=== PATIENT | female | born 1945 | race Caucasian/White ===

== ENCOUNTER 2018-08-30 05:33 | Inpatient (IN) ==
[2018-08-30] MEDS ORDERED: Sodium Chlor 0.9% Inj 500 ML IV.CONT ONE ×2 (07:00→07:45)
[2018-08-30] MEDS ORDERED: Metoprolol Tartrate 25 MG Tablet PO ONE ×2 (07:00→07:45)
[2018-08-30] MEDS ORDERED: Chlorhexidine Gluconate 2% 1 Pack (2 Cloths) TOPICAL ONE ×2 (07:00→07:45)
[2018-08-30] MEDS ORDERED: ceFAZolin 2 GM Premix Inj 2 GM/50 ML PIGGYBACK IV.SIG SCH ×2 (07:00→15:00)
[2018-08-30] MEDS ORDERED: HYDROmorphone PF Inj 1 MG/ML Ampul IV.PUSH PRN (07:03)
[2018-08-30] MEDS ORDERED: Post-op Orders (for Pharmacy) OTHER STA (07:03)
[2018-08-30] MEDS ORDERED: Dexamethasone Inj 20 MG/5 ML Vial ONE (07:12)
[2018-08-30] MEDS ORDERED: Sodium Chlor 0.9% Inj 250 ML ONE ×2 (07:12→07:20)
[2018-08-30] MEDS ORDERED: ceFAZolin 2 GM Premix Inj 2 GM/50 ML PIGGYBACK IV.SIG ONE (07:12)
[2018-08-30] MEDS ORDERED: Chlorhexidine 4% Topical 120 APPLIC/120 ML Bottle TOPICAL SCH (07:15)
[2018-08-30 07:28] LABS: INR 1.1 Ratio; Prothrombin Time 11.1 sec (9.8-11.6)
[2018-08-30] MEDS ORDERED: SODIUM CHLOR 0.9% IV.SIG SCH (07:30)
[2018-08-30] MEDS ORDERED: Tranexamic Acid Inj 3,000 MG in Sodium Chlor 0.9% Inj 100 ML P-ARTICULR SCH (07:30)
[2018-08-30] MEDS ORDERED: TRANEXAMIC ACID IV.SIG SCH (07:30)
[2018-08-30] MEDS ORDERED: Vancomycin Inj 1,000 MG in Sodium Chlor 0.9% Inj 250 ML IV.SIG SCH ×2 (07:45→08:00)
[2018-08-30] MEDS ORDERED: Sodium Chlor 0.9% Inj 73.07 ML, Ropivacaine 0.5% PF Inj 24.63 ML, Ketorolac Inj 30 MG, ... P-ARTICULR SCH ×5 (08:00)
[2018-08-30] MEDS ORDERED: Neostigmine Inj 5 MG/5 ML Syringe IV.PUSH ONE (08:43)
[2018-08-30] MEDS ORDERED: Lidocaine PF 1% Inj 5 ML Syringe OTHER ONE (08:43)
[2018-08-30] MEDS ORDERED: Phenylephrine/NS 1000 MCG/10ML Syringe IV.PUSH ONE (08:43)
[2018-08-30] MEDS ORDERED: Glycopyrrolate Inj 1 MG/5 ML Syringe IV.PUSH ONE (08:43)
[2018-08-30] MEDS ORDERED: *Ondansetron Inj 4 MG/2 ML Vial PERIprocedural Use ONLY ONE (10:47)
[2018-08-30] MEDS ORDERED: *Meperidine Inj 25 MG/ML Vial PERIprocedural Use ONLY ONE (10:57)
[2018-08-30] MEDS ORDERED: fentaNYL Citrate Inj 100 MCG/2 ML Ampul ONE (11:00)
--- NOTE | 2018-08-30 11:14 | XR ---
EXAM DATE: 08/30/2018 7:02 AM EDT AGE/SEX: 73 years / Female INDICATIONS: Post op right knee. CLINICAL DATA: This is the patient's initial encounter. Patient reports that signs and symptoms have been present for 1 day and indicates a pain score of Nonresponsive. MEDICAL/SURGICAL HISTORY: None. None. COMPARISON: . FINDINGS: Right knee arthroplasty in place. Unspecified components are in anatomic alignment and well positione d. No significant acute bony fracture. Immediate postsurgical soft tissue changes. CONCLUSION: 1. Right knee arthroplasty in anatomic alignment without acute fracture. Electronically signed by: Jamshid Marie MD 08/30/2018 11:12 AM EDT
--- NOTE | 2018-08-30 11:17 | MP ---
cc: Víctor Julian MD DATE OF OPERATION: 08/30/2018 PREOPERATIVE DIAGNOSIS: Right knee osteoarthritis. POSTOPERATIVE DIAGNOSIS: Right knee osteoarthritis. PROCEDURE PERFORMED: Right total knee arthroplasty. SURGEON: Víctor Julian MD DRY CLEANING SUPERVISOR: ANGELICA French ANESTHESIA: General with a femoral nerve block. ESTIMATED BLOOD LOSS: 100 mL TOURNIQUET TIME: 24 minutes at 250 mmHg. COMPLICATIONS: None. IMPLANTS USED: DePuy Attune size 4 posterior stabilized femoral component, size 5 rotating platform tibial baseplate, size 7 mm polyethylene tibial insert, size 35 patella. JUSTIFICATION: This patient is a 73-year-old female with a history of severe osteoarthritis involving the right knee joint. She has severe disabling pain with standing, walking, ambulation, weightbearing activities, and even severe pain at rest. She has failed greater than 3 months of nonoperative conservative treatment to include medication therapy, injections, ambulatory assisted aids, a home exercise program, activity modification, and weight loss. X-rays of the right knee reveal severe osteoarthritis with joint space narrowing, subchondral sclerosis, subchondral cyst, osteophyte formation with deformity and subluxation. The patient was counseled as to the risks, benefits, and alternatives to a total knee arthroplasty. The risks were discussed, which include, but are not limited to anesthesia, bleeding, infection, damage to nerves and blood vessels, pain, stiffness, failure of hardware, blood clots, pulmonary embolism, and even . The patient's pain is severe. She favors the benefits over the risks and wishes to proceed with surgery. PROCEDURE IN DETAIL: Written consent was obtained. The patient was identified by name, taken to the operating room, and placed supine on the operating room table. General anesthesia was administered as well as 2 grams of IV Ancef and 1 gram of IV vancomycin. The right lower extremity was prepped and draped using isopropyl alcohol, Hibiclens solution, and ChloraPrep solution. After a timeout was performed, an Esmarch bandage was used to exsanguinate the right lower extremity and the was tourniquet inflated to 250 mmHg. A longitudinal incision was made over the anterior aspect of the right knee. A medial parapatellar arthrotomy was performed. The patella was everted. A patellar resection guide was used to resect 7 mm of the patella. The size 35 mm guide was placed. Three drills were placed and the 35 mm trial fit well. Attention was turned to the femur, where an intramedullary guide was placed. The distal femoral guide was set to remove 11 mm of distal femur, 5 degrees off the anatomic valgus axis alignment. An oscillating saw was used to perform the distal femoral cut. Attention was turned to the tibia, where an extramedullary tibial guide was set to remove 5 mm off the lowest portion of the medial tibial plateau. A tibial guide was then placed and a tibial cut was performed. A 5 mm spacer block showed full extension. Attention was turned back to the femur, where an AP sizing block measured a size 4. The anterior reference 3-degree external rotation guide was used to pin a size [address] The anterior, posterior and chamfer cuts were performed. The size 4 PCL box was pinned in place and the PCL was boxed out with an oscillating saw. The medial and lateral meniscus remnants were removed, as well as bone and soft tissue debrided from the posterior portion of the knee. A size 5 tibial base plate was pinned in place, the tibia was drilled with a punch. Trial components were evaluated and the final components cemented in place. With the current components, the leg could achieve full extension to 0 degrees and flexion to 140 with no evidence of tibial liftoff. Varus and valgus balance appeared appropriate and symmetric. There was some lateral patellar tracking and a lateral release was performed, which allowed for central patellar tracking. With the tourniquet deflated, Bovie cautery was used for hemostasis. The surgical wound was thoroughly irrigated with sterile saline, pulse lavaged with antibiotic impregnated solution. The arthrotomy incision was closed with #1 Vicryl suture, the subcutaneous layer with 2-0 Vicryl suture, and the skin was closed with Dermabond. A sterile dressing was applied. The patient tolerated the procedure well with no intraoperative complications noted. Max Aceves, Physician Director [employer] was present for the entire procedure to include the patient positioning and the procedure itself. The medical necessity of a physician food and nutrition services assistant was indicated in this case due to the complexity of the procedure to assist with appropriate manipulation of the leg, muscle retraction as well as tendon, bone, and neurovascular structures. He assisted with preparation of bone and also implantation of the prosthetic replacement. MD TANIA Kidd/didier , 10:16 AM , 10:25 AM
[2018-08-30] MEDS: Senna/Docusate Sodium 8.6/50 MG Tablet PO SCH ×2 (13:13→22:19)
[2018-08-30] MEDS: Multivitamin/Minerals Therapeutic Tablet PO SCH ×2 (13:13→22:18)
[2018-08-30] MEDS: ceFAZolin 2 GM/NS 100 ML IV; Q8H IV.SIG SCH ×4 (15:19→22:13)
--- NOTE | 2018-08-30 16:04 | P.CON ---
History of Present Illness Requesting Physician: Víctor Julian Reason for Consult: postop mgt Primary Care Provider: No Primary Care Physician Chief Complaint: Right knee pain History of Present Illness: This is a 73-year-old female who complains of right knee pain secondary to osteoarthritis. She underwent elective arthroplasty by Dr. Víctor Julian who requested consultation to evaluate and manage postoperatively. Anesthesia records reviewed she was hemodynamically stable. Received 600 mL and EBL of 25 mL. She also had nerve block. Preoperative evaluation reviewed. EKG tracing interpreted by me with sinus bradycardia. Chest x-ray with no acute cardiopulmonary disease. She has been cleared for surgery by her PCP. She has multiple medical conditions as follows: Hyperlipidemia controlled on Lipitor, hypertension managed on FRITZ, atrial fibrillation controlled on propafenone XL and Pradaxa which she has discontinued 9 days ago and congestive heart failure currently compensated. All other systems reviewed negative. Review of Systems All other systems reviewed negative except as stated in HPI PMFSH - History History Provided By: Patient - Medical History Medical History: Medical History (Last Reviewed 08/30/18 @ 16:08 by Lraon De Los Santos MD) Arthritis Cardiac arrhythmia GERD (gastroesophageal reflux disease) High cholesterol History of gastritis History of right breast cancer Hypertension Migraine Urinary frequency - Surgical History Surgical History: Surgical History (Last Reviewed 08/30/18 @ 16:08 by Laron De Los Santos MD) History of arthroscopy of right knee History of cataract extraction with lens replacement History of lumpectomy of right breast History of tonsillectomy - Family History Family History: Family History (Last Updated 08/30/18 @ 16:09 by Laron De Los Santos MD) Other Family history of diabetes mellitus - Social History I have reviewed the patient's Social History: Yes - Tobacco History Second Hand Smoke Exposure: No Smoking Status: Never smoker - Alcohol History How Often Do You Have a Drink Containing Alcohol: Never - Substance Use History Substance History: No History of Abuse - Travel History Recent Travel in the [place] Within the Last 8 Weeks: No Recent Travel Out of the Country Within the Last 8 Weeks: No Medications and Allergies Active Medications: Active Medications Hydrocodone Bitart/Acetaminophen ([place] 7.5/325) 2 tab PO Q6H PRN PRN Reason: PAIN SCALE 5 TO 10 Last Admin: 08/30/18 13:08 Dose: 2 tab Hydrocodone Bitart/Acetaminophen ([place] 7.5/325) 1 tab PO Q4H PRN PRN Reason: PAIN LESS THAN 5 ON SCALE Al Hydroxide/Mg Hydroxide (Milk Of Alistair Liq) 30 ml PO BID PRN PRN Reason: Mild Constipation Aspirin (Aspirin Chew) 81 mg PO BID [facility] Last Admin: 08/30/18 13:13 Dose: Not Given Atorvastatin Calcium (Lipitor) 10 mg PO DAILY [facility] Chlorhexidine Gluconate (Hibiclens 4% Topical) 1 applicatio TOPICAL ONCE [facility] Stop: 09/03/18 07:14 Last Admin: 08/30/18 07:46 Dose: 1 applicatio Diphenhydramine HCl (Benadryl) 25 mg PO Q6H PRN PRN Reason: ITCHING Hydromorphone HCl (Dilaudid Pf Inj) 1 mg IV.PUSH Q3H PRN PRN Reason: BREAKTHROUGH PAIN Lactated Ringer's (Lr 1000 Ml Inj) 1,000 mls @ 30 mls/hr IV.CONT .Q24H ONE Stop: 08/31/18 06:59 Last Admin: 08/30/18 06:58 Dose: 30 mls/hr Sodium Chloride (Ns Inj) 500 mls @ 30 mls/hr IV.CONT .[id number] ONE Stop: 08/30/18 23:39 Last Admin: 08/30/18 06:58 Dose: Not Given Lactated Ringer's (Lr 1000 Ml Inj) 1,000 mls @ 80 mls/hr IV.CONT .[id number] [facility] Last Admin: 08/30/18 13:13 Dose: Not Given Cefazolin Sodium/Dextrose (Ancef 2 Gm Premix Inj) 2 gm in 50 mls @ 100 mls/hr IV.SIG FILLING STATION ATTENDANT [facility] Stop: 09/03/18 06:59 Last Infusion: 08/30/18 08:50 Dose: Infused Lactated Ringer's (Lr 1000 Ml Inj) 1,000 mls @ 30 mls/hr IV.CONT .Q24H ONE Stop: 08/31/18 07:44 Last Admin: 08/30/18 07:45 Dose: Not Given Sodium Chloride (Ns Inj) 500 mls @ 30 mls/hr IV.CONT .[id number] ONE Stop: 08/31/18 00:24 Last Admin: 08/30/18 07:45 Dose: Not Given Vancomycin HCl 1,000 mg/ (Sodium Chloride) 250 mls @ 250 mls/hr IV.SIG FILLING STATION ATTENDANT [facility] Stop: 09/02/18 07:44 Last Admin: 08/30/18 07:44 Dose: Not Given Cefazolin Sodium 2,000 mg/ (Sodium Chloride) 100 mls @ 200 mls/hr IV.SIG Q6H [facility] Stop: 08/31/18 03:29 Last Admin: 08/30/18 15:19 Dose: 200 mls/hr Lactulose (Lactulose Liq) 30 ml PO DAILY PRN PRN Reason: SEVERE CONSITIPATION Miscellaneous Information ([facility]) 0 each OTHER UNSCH PRN PRN Reason: SEE LABEL COMMENTS Stop: 08/31/18 10:47 Multivitamins/Minerals (Theragran-M) 1 tab PO BID [facility] Stop: 10/29/18 08:59 Last Admin: 08/30/18 13:13 Dose: Not Given Non-Formulary Medication (Amlodipine-Olmesartan [Amlodipine-Olmesartan]) 1 tab PO DAILY [facility] Non-Formulary Medication (Calcium Carbonate-Vitamin D3 [Os-Paresh 500 + D3]) 1 tab PO BID [facility] Non-Formulary Medication (Propafenone [Propafenone]) 225 mg PO Q8H [facility] Non-Formulary Medication (Valacyclovir [Valacyclovir]) 1,000 mg PO DAILY [facility] Non-Formulary Medication (Bifidobacterium Infantis [Align]) 4 mg PO DAILY [facility] Ondansetron HCl (Zofran Inj) 4 mg IV.PUSH Q6H PRN PRN Reason: NAUSEA OR VOMITING Povidone Iodine (Betadine 7.5% Scrub) 1 applicatio TOPICAL ONCE [facility] Stop: 09/03/18 07:59 Senna/Docusate Sodium (Debbie-Colace) 1 tab PO BID [facility] Last Admin: 08/30/18 13:13 Dose: Not Given Sennosides (Senokot) 17.2 mg PO BID PRN PRN Reason: Moderate Constipation Sodium Chloride (Ns Flush) 2 ml IV.FLUSH BID [facility] Last Admin: 08/30/18 13:13 Dose: Not Given Sodium Chloride (Ns Flush) 2 ml IV.FLUSH PRN PRN PRN Reason: FLUSH AFTER USING IV ACCESS Tobramycin Sulfate (Tobrex 0.3% Drops) drop EACH EYE Q4H [facility] Zolpidem Tartrate (Ambien) 5 mg PO HS PRN PRN Reason: INSOMNIA Allergies Allergy/AdvReac Type Severity Reaction Status Date / Time No Known Allergies Allergy Verified 08/30/18 06:47 Home Medications Medication Instructions Recorded Confirmed Type Bifidobacterium infantis [Align] 4 mg PO DAILY 08/16/18 08/30/18 History amlodipine-olmesartan 1 tab PO DAILY 08/16/18 08/30/18 History atorvastatin 10 mg PO DAILY 08/16/18 08/30/18 History calcium carbonate-vitamin D3 1 tab PO BID 08/16/18 08/30/18 History [Os-Paresh 500 + D3] dabigatran etexilate [Pradaxa] 150 mg PO BID 08/16/18 08/30/18 History prednisolone 20 mg PO DAILY 08/16/18 08/30/18 History propafenone 225 mg PO Q8H 08/16/18 08/30/18 History tobramycin 1 drp OPHTHALMIC (EYE) Q4H 08/16/18 08/30/18 History valacyclovir 1,000 mg PO DAILY 08/16/18 08/30/18 History Physical Exam Vital signs: Vital Signs 08/30/18 06:41 08/30/18 07:08 08/30/18 10:44 Temperature 98.4 F 98.5 F Pulse Rate 80 89 99 H Respiratory Rate 20 20 Blood Pressure 137/79 87/57 L Pulse Oximetry 97 98 93 L 08/30/18 10:47 08/30/18 11:00 08/30/18 11:10 Temperature Pulse Rate 106 H 95 H Respiratory Rate 19 17 Blood Pressure 119/63 118/80 Pulse Oximetry 98 98 96 08/30/18 11:15 08/30/18 12:25 08/30/18 13:36 Temperature 98.6 F 97.5 F L 97.3 F L Pulse Rate 86 113 H 104 H Respiratory Rate 19 18 18 Blood Pressure 117/66 117/69 111/72 Pulse Oximetry 97 97 98 Intake & Output 08/29/18 08/30/18 08/30/18 18:59 06:59 18:59 Intake Total 1011.22 / 1011.22 Output Total Balance 986.22 / 986.22 Weight 74.8 kg 91.8 kg Intake: IV 411.22 / 411.22 Cyklokapron Inj 1,122 MG In NS 111.22 / 111.22 Inj 100 ML @ 200 mls/hr IV.SIG ONCE [facility] Rx#:[id number] Vancomycin Inj 1,000 MG In NS 250 / 250 Inj 250 ML @ 250 mls/hr IV.SIG FILLING STATION ATTENDANT [facility] Rx#:[id number] Ancef 2 GM Premix Inj 2 gm In 50 / 50 50 ml @ 100 mls/hr IV.SIG FILLING STATION ATTENDANT [facility] Rx#:[id number] Anesthesia Amount 600 / 600 Output: Estimated Blood Loss 25 / 25 Other: Weight On Admission 74.8 kg Narrative: GENERAL: Well-developed, well nourished in no distress SKIN: Warm and dry. HEAD: Atraumatic. Normocephalic. EYES: Pupils equal and round. No scleral icterus. No injection or drainage. ENT: No nasal bleeding or discharge. Mucous membranes pink and moist. NECK: Trachea midline. No JVD. CARDIOVASCULAR: Irregularly irregular RESPIRATORY: No accessory muscle use. Clear to auscultation. Breath sounds equal bilaterally. GASTROINTESTINAL: Abdomen soft, non-tender, nondistended. MUSCULOSKELETAL: Right lower extremity with thick clean bandage NEUROLOGICAL: Awake and alert. No obvious cranial nerve deficits. Motor grossly within normal limits. Five out of 5 muscle strength in the arms and legs. Normal speech. PSYCHIATRIC: Appropriate mood and affect; insight and judgment normal. Assessment and Plan - Plan This is a 73-year-old female who complains of right knee pain secondary to osteoarthritis. She underwent elective arthroplasty by Dr. Víctor Julian who requested consultation to evaluate and manage postoperatively. Continue postoperative care with incentive spirometry, PT, wound care, DVT prophylaxis with aspirin and pain management with Lortab and IV Dilaudid. Hyperlipidemia controlled on Lipitor, will continue Hypertension managed on FRITZ, will continue Atrial fibrillation controlled on propafenone XL and pradaxa which she has discontinued 9 days ago and congestive heart failure currently compensated. Restart Pradaxa when cleared by orthopedic surgery Medication list discussed with patient, states he is not taking prednisone and acyclovir
[2018-08-30] MEDS: Propafenone 150 MG Tablet PO SCH (16:56)
[2018-08-30] MEDS: Tobramycin 0.3% Opth Drops 5 ML Bottle EACH EYE SCH ×2 (16:57→22:17)
[2018-08-30] MEDS ORDERED: Zolpidem Tartrate 5 MG Tablet PO PRN (21:00)
[2018-08-30] MEDS: Calcium/Vitamin D 250/125 MG Tablet PO SCH (22:18)
[2018-08-31] MEDS: Propafenone 150 MG Tablet PO SCH ×3 (01:03→17:04)
[2018-08-31] MEDS: Tobramycin 0.3% Opth Drops 5 ML Bottle EACH EYE SCH ×6 (01:05→20:01)
[2018-08-31] MEDS: ceFAZolin 2 GM/NS 100 ML IV; Q8H IV.SIG SCH ×2 (03:29)
[2018-08-31] MEDS: Multivitamin/Minerals Therapeutic Tablet PO SCH ×2 (08:02→20:03)
[2018-08-31] MEDS: amLODIPine 5 MG Tablet PO SCH (08:04)
[2018-08-31] MEDS: Senna/Docusate Sodium 8.6/50 MG Tablet PO SCH ×2 (08:07→20:03)
[2018-08-31] MEDS: Calcium/Vitamin D 250/125 MG Tablet PO SCH ×2 (08:08→20:03)
--- NOTE | 2018-08-31 08:11 | P.PNOP ---
Subjective Interval history: pain controlled. Physical Exam Vital signs: Vital Signs 08/30/18 10:44 08/30/18 10:47 08/30/18 11:00 Temperature 98.5 F Pulse Rate 99 H 106 H 95 H Respiratory Rate 20 19 17 Blood Pressure 87/57 L 119/63 118/80 Pulse Oximetry 93 L 98 98 08/30/18 11:10 08/30/18 11:15 08/30/18 12:25 Temperature 98.6 F 97.5 F L Pulse Rate 86 113 H Respiratory Rate 19 18 Blood Pressure 117/66 117/69 Pulse Oximetry 96 97 97 08/30/18 13:36 08/30/18 16:00 08/30/18 20:00 Temperature 97.3 F L 97.3 F L 97.2 F L Pulse Rate 104 H 79 88 Respiratory Rate 18 20 17 Blood Pressure 111/72 113/54 L 104/58 L Pulse Oximetry 98 94 L 95 08/31/18 00:00 08/31/18 04:00 Temperature 97.7 F 98.0 F Pulse Rate 96 H 94 H Respiratory Rate 16 16 Blood Pressure 102/59 L 92/57 L Pulse Oximetry 94 L 95 Intake & Output 08/30/18 08/31/18 08/31/18 18:59 06:59 18:59 Intake Total 2091.22 / 2091.22 1200 / 1200 Output Total 25 / 25 Balance 2066.22 / 2066.22 1200 / 1200 Weight 91.8 kg 91.8 kg Intake: IV 511.22 / 511.22 1200 / 1200 LR 1000 mL Inj 1,000 ML @ 80 1000 / 1000 mls/hr IV.CONT .[id number] [facility] Rx# :[id number] Cyklokapron Inj 1,122 MG In NS 111.22 / 111.22 Inj 100 ML @ 200 mls/hr IV.SIG ONCE [facility] Rx#:[id number] Vancomycin Inj 1,000 MG In NS 250 / 250 Inj 250 ML @ 250 mls/hr IV.SIG CURRICULUM ADVISORY TEACHER [facility] Rx#:[id number] Ancef 2 GM Premix Inj 2 gm In 50 / 50 50 ml @ 100 mls/hr IV.SIG CURRICULUM ADVISORY TEACHER [facility] Rx#:[id number] Ancef Inj 2,000 MG In NS Inj 80 100 / 100 200 / 200 ML @ 200 mls/hr IV.SIG Q6H [facility] Rx#:[id number] Oral 980 / 980 Anesthesia Amount 600 / 600 Output: Estimated Blood Loss 25 / 25 Other: # Voids 1 4 # Bowel Movements 0 Narrative: in bed, nad dressing c/d/i neg homans nvi Results - Labs Laboratory Results - last 24 hr 08/30/18 06:50 Blood Type A Negative Blood Type Recheck Required Antibody Screen Negative - Imaging Impressions Knee X-Ray 08/30/18 07:02 CONCLUSION: 1. Right knee arthroplasty in anatomic alignment without acute fracture. Assessment and Plan - Ortho Post Op Day # 1 - Assessment and Plan s/p R TKA wbat ok to maintain dressing unless saturated asa 81 d/c planning to snf f/up dr. gould 2 weeks.
[2018-08-31] MEDS ORDERED: AMLODIPINE OLMESARTAN PO SCH (09:00)
[2018-08-31] MEDS ORDERED: [UNRECOGNIZED DRUG - OTHER] PO SCH (09:00)
[2018-08-31] MEDS ORDERED: Non-Formulary Drug (Valacyclovir [Valacyclovir] 1,000 MG) PO SCH (09:00)
[2018-08-31 09:07] LABS: Hematocrit 36.1 % (35.0-46.0); Hemoglobin 12.1 gm/dL (11.6-15.3)
[2018-08-31 09:27] LABS: Calcium 8.3 mg/dL (8.5-10.1); Carbon Dioxide 25.7 meq/L (21.0-32.0)
[2018-08-31 09:28] LABS: Potassium 4.6 meq/L (3.5-5.1)
--- NOTE | 2018-08-31 10:54 | P.PN ---
Subjective Interval history: This is a pleasant 73 y/o Female with status post elective Right knee arthroplasty, She has Hyperlipidemia controlled on Lipitor, hypertension managed on FRITZ, atrial fibrillation controlled on propafenone XL and Pradaxa which she has discontinued 9 days before surgery, CHF currently compensated. GERD, History of breast cancer. 08/31: Seen in her bedroom no new issues, no nausea, vomit or diarrhea. Physical Exam Vital signs: Vital Signs 08/30/18 11:00 08/30/18 11:10 08/30/18 11:15 Temperature 98.6 F Pulse Rate 95 H 86 Respiratory Rate 17 19 Blood Pressure 118/80 117/66 Pulse Oximetry 98 96 97 08/30/18 12:25 08/30/18 13:36 08/30/18 16:00 Temperature 97.5 F L 97.3 F L 97.3 F L Pulse Rate 113 H 104 H 79 Respiratory Rate 18 18 20 Blood Pressure 117/69 111/72 113/54 L Pulse Oximetry 97 98 94 L 08/30/18 20:00 08/31/18 00:00 08/31/18 04:00 Temperature 97.2 F L 97.7 F 98.0 F Pulse Rate 88 96 H 94 H Respiratory Rate 17 16 16 Blood Pressure 104/58 L 102/59 L 92/57 L Pulse Oximetry 95 94 L 95 08/31/18 08:00 Temperature 98.9 F Pulse Rate 95 H Respiratory Rate 18 Blood Pressure 116/67 Pulse Oximetry 97 Intake & Output 08/30/18 08/31/18 08/31/18 18:59 06:59 18:59 Intake Total 2091.22 / 2091.22 1200 / 1200 Output Total 25 / 25 Balance 2066.22 / 2066.22 1200 / 1200 Weight 91.8 kg 91.8 kg Intake: IV 511.22 / 511.22 1200 / 1200 LR 1000 mL Inj 1,000 ML @ 80 1000 / 1000 mls/hr IV.CONT .[id number] [facility] Rx# :[id number] Cyklokapron Inj 1,122 MG In NS 111.22 / 111.22 Inj 100 ML @ 200 mls/hr IV.SIG ONCE [facility] Rx#:[id number] Vancomycin Inj 1,000 MG In NS 250 / 250 Inj 250 ML @ 250 mls/hr IV.SIG PUMP INSTALLER [facility] Rx#:[id number] Ancef 2 GM Premix Inj 2 gm In 50 / 50 50 ml @ 100 mls/hr IV.SIG PUMP INSTALLER [facility] Rx#:[id number] Ancef Inj 2,000 MG In NS Inj 80 100 / 100 200 / 200 ML @ 200 mls/hr IV.SIG Q6H [facility] Rx#:[id number] Oral 980 / 980 Anesthesia Amount 600 / 600 Output: Estimated Blood Loss 25 / 25 Other: # Voids 1 4 # Bowel Movements 0 Narrative: GENERAL: Well-developed, well nourished in no distress SKIN: Warm and dry. HEAD: Atraumatic. Normocephalic. EYES: Pupils equal and round. No scleral icterus. No injection or drainage. ENT: No nasal bleeding or discharge. Mucous membranes pink and moist. NECK: Trachea midline. No JVD. CARDIOVASCULAR: Irregularly irregular RESPIRATORY: No accessory muscle use. Clear to auscultation. Breath sounds equal bilaterally. GASTROINTESTINAL: Abdomen soft, non-tender, nondistended. MUSCULOSKELETAL: Right lower extremity with thick clean bandage NEUROLOGICAL: Awake and alert. No obvious cranial nerve deficits. PSYCHIATRIC: Appropriate mood and affect; insight and judgment normal. Results - Labs CBC & Chem 7: 08/31/18 10:10 08/31/18 08:36 Laboratory Results - last 24 hr 08/31/18 08/31/18 08:36 10:10 Hgb 12.1 Hct 36.1 Sodium 138 Potassium 4.6 Chloride 105 Carbon Dioxide 25.7 Anion Gap 7 BUN 17 Creatinine 0.94 Estimated GFR 58 L Random Glucose 114 H Calcium 8.3 L - Imaging Impressions Knee X-Ray 08/30/18 07:02 CONCLUSION: 1. Right knee arthroplasty in anatomic alignment without acute fracture. - Procedures Right knee arthroplasty Assessment and Plan - Plan This is a 73-year-old female who complains of right knee pain secondary to osteoarthritis. Status post elective Arthroplasty, by Dr. Víctor Julian, PT and OT following, DVT prophylaxis with Aspirin, pain management, Weight bearing as tolerated. okay to maintain dressing unless saturated, recommended t discharge to SNF in 2 weeks. Hyperlipidemia controlled on Lipitor, will continue Hypertension managed on FRITZ, will continue Atrial fibrillation controlled on propafenone XL and re started on Pradaxa DVT prophylaxis with Aspirin, no on Pradaxa. Code Status: Full code. Discussed Condition With: Patient and Nurse Discharge Planning: As per attending physician.
[2018-09-01] MEDS: Propafenone 150 MG Tablet PO SCH ×4 (00:06→23:55)
[2018-09-01] MEDS: Tobramycin 0.3% Opth Drops 5 ML Bottle EACH EYE SCH ×7 (00:06→21:03)
[2018-09-01 05:07] LABS: Hematocrit 30.8 % (35.0-46.0); Hemoglobin 10.3 gm/dL (11.6-15.3)
[2018-09-01 05:36] LABS: Calcium 7.6 mg/dL (8.5-10.1); Carbon Dioxide 27.9 meq/L (21.0-32.0)
[2018-09-01] MEDS: Calcium/Vitamin D 250/125 MG Tablet PO SCH ×2 (10:33→21:00)
[2018-09-01] MEDS: amLODIPine 5 MG Tablet PO SCH (10:33)
[2018-09-01] MEDS: Multivitamin/Minerals Therapeutic Tablet PO SCH ×2 (10:34→21:00)
[2018-09-01] MEDS: Senna/Docusate Sodium 8.6/50 MG Tablet PO SCH ×2 (10:36→21:00)
--- NOTE | 2018-09-01 11:32 | P.PN ---
Subjective Interval history: This is a pleasant 73 y/o Female with status post elective Right knee arthroplasty, She has Hyperlipidemia controlled on Lipitor, hypertension managed on FRITZ, atrial fibrillation controlled on propafenone XL and Pradaxa which she has discontinued 9 days before surgery, CHF currently compensated. GERD, History of breast cancer. 09/01: Seen in her bedroom already recommended by Orthopedic surgery for discharge, no nausea, vomit or diarrhea. Physical Exam Vital signs: Vital Signs 08/31/18 12:00 08/31/18 16:00 08/31/18 19:25 Temperature 98.3 F 98.1 F 98.7 F Pulse Rate 86 81 101 H Respiratory Rate 20 20 18 Blood Pressure 105/58 L 112/57 L 99/57 L Pulse Oximetry 96 96 96 09/01/18 00:00 09/01/18 08:00 Temperature 98.3 F 98.2 F Pulse Rate 118 H 93 H Respiratory Rate 18 18 Blood Pressure 112/71 113/64 Pulse Oximetry 97 91 L Intake & Output 08/31/18 09/01/18 09/01/18 18:59 06:59 18:59 Intake Total 1460 / 1460 1750 / 1750 Balance 1460 / 1460 1750 / 1750 Weight 91.8 kg Intake: IV 500 / 500 1510 / 1510 LR 1000 mL Inj 1,000 ML @ 80 500 / 500 1510 / 1510 mls/hr IV[id number] Rx# :[id number] Oral 960 / 960 240 / 240 Other: # Voids 4 2 Date of Last Bowel Movement 08/30/18 # Bowel Movements 0 0 Narrative: GENERAL: Well-developed, well nourished in no distress SKIN: Warm and dry. HEAD: Atraumatic. Normocephalic. EYES: Pupils equal and round. No scleral icterus. No injection or drainage. ENT: No nasal bleeding or discharge. Mucous membranes pink and moist. NECK: Trachea midline. No JVD. CARDIOVASCULAR: Irregularly irregular RESPIRATORY: No accessory muscle use. Clear to auscultation. Breath sounds equal bilaterally. GASTROINTESTINAL: Abdomen soft, non-tender, nondistended. MUSCULOSKELETAL: Right lower extremity with thick clean bandage NEUROLOGICAL: Awake and alert. No obvious cranial nerve deficits. PSYCHIATRIC: Appropriate mood and affect; insight and judgment normal. Results - Labs CBC & Chem 7: 09/01/18 04:38 09/01/18 04:38 Laboratory Results - last 24 hr 09/01/18 09/01/18 04:38 04:38 Hgb 10.3 L Hct 30.8 L Sodium 139 Potassium 4.0 Chloride 106 Carbon Dioxide 27.9 Anion Gap 5 BUN 16 Creatinine 0.77 Estimated GFR 73 L Random Glucose 111 H Calcium 7.6 L - Imaging Knee X-Ray 08/30/18 07:02 CONCLUSION: 1. Right knee arthroplasty in anatomic alignment without acute fracture. - Procedures Right knee arthroplasty Assessment and Plan - Plan This is a 73-year-old female who complains of right knee pain secondary to osteoarthritis. Status post elective Arthroplasty, by Dr. Víctor Julian, PT and OT following, DVT prophylaxis with Aspirin, pain management, Weight bearing as tolerated. okay to maintain dressing unless saturated, recommended discharge to SNF Follow up in 2 weeks. Hyperlipidemia controlled on Lipitor, will continue Hypertension managed on FRITZ, will continue Atrial fibrillation controlled on propafenone XL and re started on Pradaxa DVT prophylaxis with Aspirin, no on Pradaxa. Code Status: Full code. Discussed Condition With: Patient and Nurse Miss Kuhn Discharge Planning: As per attending physician.
--- NOTE | 2018-09-01 12:58 | P.PNOP ---
Subjective Interval history: painful last night. better today. Physical Exam Vital signs: Vital Signs 08/31/18 16:00 08/31/18 19:25 09/01/18 00:00 Temperature 98.1 F 98.7 F 98.3 F Pulse Rate 81 101 H 118 H Respiratory Rate 20 18 18 Blood Pressure 112/57 L 99/57 L 112/71 Pulse Oximetry 96 96 97 09/01/18 08:00 09/01/18 12:00 Temperature 98.2 F 98.3 F Pulse Rate 93 H 95 H Respiratory Rate 18 18 Blood Pressure 113/64 133/63 Pulse Oximetry 91 L 94 L Intake & Output 08/31/18 09/01/18 09/01/18 18:59 06:59 18:59 Intake Total 1460 / 1460 1750 / 1750 Balance 1460 / 1460 1750 / 1750 Weight 91.8 kg Intake: IV 500 / 500 1510 / 1510 LR 1000 mL Inj 1,000 ML @ 80 500 / 500 1510 / 1510 mls/hr IV.CONT .[id number] [facility] Rx# :[id number] Oral 960 / 960 240 / 240 Other: # Voids 4 2 Date of Last Bowel Movement 08/30/18 08/30/18 # Bowel Movements 0 0 Narrative: in bed, nad, using cpm. dressing c/d/d neg homans nvi Results - Labs CBC & Chem 7: 09/01/18 04:38 09/01/18 04:38 Laboratory Results - last 24 hr 09/01/18 09/01/18 04:38 04:38 Hgb 10.3 L Hct 30.8 L Sodium 139 Potassium 4.0 Chloride 106 Carbon Dioxide 27.9 Anion Gap 5 BUN 16 Creatinine 0.77 Estimated GFR 73 L Random Glucose 111 H Calcium 7.6 L - Procedures Right knee arthroplasty Assessment and Plan - Ortho Post Op Day # 2 - Assessment and Plan s/p R TKA wbat ok to maintain dressing unless saturated pradaxa d/c planning to snf - [facility]. f/up dr. gould 2 weeks.
[2018-09-01] MEDS: Famotidine PF Inj 20 MG/2 ML Vial IV.PUSH SCH (18:20)
[2018-09-01] MEDS: Sucralfate 1 GM Tablet PO SCH (21:00)
[2018-09-02] MEDS: Famotidine PF Inj 20 MG/2 ML Vial IV.PUSH SCH (06:38)
--- NOTE | 2018-09-02 07:53 | P.PNOP ---
Subjective Interval history: felling better this morning. Physical Exam Vital signs: Vital Signs 09/01/18 08:00 09/01/18 12:00 09/01/18 15:43 Temperature 98.2 F 98.3 F 99 F Pulse Rate 93 H 95 H 99 H Respiratory Rate 18 18 18 Blood Pressure 113/64 133/63 112/56 L Pulse Oximetry 91 L 94 L 93 L 09/01/18 20:49 09/02/18 00:34 Temperature 98.7 F 98.4 F Pulse Rate 85 89 Respiratory Rate 18 18 Blood Pressure 112/65 105/65 Pulse Oximetry 96 97 Intake & Output 09/01/18 09/02/18 09/02/18 18:59 06:59 18:59 Intake Total 840 / 840 360 / 360 Balance 840 / 840 360 / 360 Weight 91.8 kg Intake: Oral 840 / 840 360 / 360 Other: # Voids 4 2 Date of Last Bowel Movement 09/01/18 09/01/18 # Bowel Movements 1 0 Narrative: sitting in chair, nad dressing c/d/i neg diana duboisi Results - Labs CBC & Chem 7: 09/01/18 04:38 09/01/18 04:38 - Procedures Right knee arthroplasty Assessment and Plan - Ortho Post Op Day # 3 - Assessment and Plan s/p R TKA wbat ok to maintain dressing unless saturated pradaxa d/c planning to snf - cleared when authorized by insurance f/up dr. gould 2 weeks.
[2018-09-02] MEDS: Multivitamin/Minerals Therapeutic Tablet PO SCH (09:16)
[2018-09-02] MEDS: Calcium/Vitamin D 250/125 MG Tablet PO SCH (09:17)
[2018-09-02] MEDS: Tobramycin 0.3% Opth Drops 5 ML Bottle EACH EYE SCH (09:17)
[2018-09-02] MEDS: Propafenone 150 MG Tablet PO SCH (09:17)
[2018-09-02] MEDS: Sucralfate 1 GM Tablet PO SCH ×2 (09:17→14:09)
[2018-09-02 09:41] VITALS: TEMP 98
[2018-09-02] MEDS: amLODIPine 5 MG Tablet PO SCH (10:09)
[2018-09-02] MEDS: Senna/Docusate Sodium 8.6/50 MG Tablet PO SCH (10:09)
[2018-09-02 12:36] VITALS: BP 137/75; PULSE 94; RESP 21; O2SAT 97
== END 2018-09-02 15:14 ==
LOC: HSDI 05:33 → N06 11:25
PROVIDERS: ADMIT Orthopaedic Surgery Sports Medicine; ATTEND Orthopaedic Surgery Sports Medicine